=== PATIENT | female | born 1955 | race Caucasian/White ===

== ENCOUNTER → 2016-11-18 | Outpatient (CLI) | payer BC ==
[~2016-11-18] MED LIST: ACTONEL PO; ATORVASTATIN CA10 MG PO; CELEBREX PO; CELEBREX100 MG PO; FLEXERIL10 MG PO; FOLIC ACID PO; FOLIC ACID1 MG PO; METHOTREXATE SUBQ; NORVASC10 MG PO; OYSTER CALCIUM500 MG PO; SYNTHROID PO; SYNTHROID75 MCG PO; VICODIN PO; VITAMIN D10000 UNIT PO; ZYRTEC-D T1 TAB.SR . PO; [UNRECOGNIZED DRUG - OTHER] SUBQ
--- NOTE | ~2016-11-18 | BD1 ---
[facility] A Service of [facility] & [facility] RADIOLOGY TEXT RESULTS PATIENT: MICKIE KNOX LOCATION: [facility] : 51 UNIT #: [id number] AGE: [address]: Nevaeh Iqbal APRN SEX: F ORDER DR: [id number] [address] [id number] O MR#: [id number] Acc #: [id number] NAME: MICKIE KNOX : 1955 SEX: F STUDY DATE/TIME: 11/18/2016 9:22 UNIT: [facility] ROOM: STUDY DESCRIPTION: BD Dexa Bone Dens 1+ Site Attending Physician: Nevaeh Iqbal A.P.R.N. Referring Physician: Nevaeh Iqbal A.P.R.N. Ordering Physician: Nevaeh Iqbal A.P.R.N. Primary Care Physician: Francesca Frazier M.D. MEDICAL IMAGING REPORT This report is preliminary unless electronic signature is present. EXAM DXA scan. HISTORY Postmenopausal screening for osteoporosis. FINDINGS Bone density was assessed using a Lunar bone densitometer. Total bone density in the lumbar spine was calculated 1.047 g/cm2 with a T-score -1.1. Total bone density within the proximal left femur was calculated at 0.887 g/cm2 with a T score of -1, and total bone density of the proximal right femur was calculated at 0.915 g/cm2 with a T-score of -0.7. IMPRESSION Patient's total bone density within the lumbar spine and proximal left femur is 1 or greater than 1 standard deviation below the mean and is compatible World Health Organization criteria for osteopenia. As the patient's previous study was performed on a separate or different unit, direct comparison cannot be made, but based on the rough calculations from the 2014 study at [place], there has been a statistically significant improvement in bone density in the lumbar spine, and also within the proximal left femur. Dictated by... Mayito Talavera M.D. THIS IS AN ELECTRONICALLY VERIFIED REPORT Mayito Talavera M.D. at 11/20/2016 2:05 PM [place] TD: 11/19/2016 21:43 [facility] A Service of [facility] & [facility] RADIOLOGY TEXT RESULTS PATIENT: MICKIE KNOX LOCATION: [facility] : 51 UNIT #: [id number] AGE: [address]: Nevaeh Iqbal APRN SEX: F ORDER DR: COURT #: [id number] MEDICAL IMAGING REPORT Page 1 of 1
== END | disposition home or self-care (01) ==
LOC: SRAD 09:06
DX: Z13.820 Encounter for screening for osteoporosis (principal); Z78.0 Asymptomatic menopausal state
CPT/HCPCS: 77080